=== PATIENT | female | born 2000 | race Caucasian/White ===

== ENCOUNTER → 2021-10-18 14:09 | Outpatient (BNVA) | payer MEDICAID, SELFPAY | PROVIDERS: PCP Pediatrics; Visit Provider Surgery | DX: L72.0 Epidermal cyst (principal) | CPT/HCPCS: 99202 ==

== ENCOUNTER 2022-02-09 13:37 | Outpatient (REF) | payer MEDICAID, SELFPAY ==
[2022-02-09 13:50] VITALS: BMI 35.3
[2022-02-09 13:51] VITALS: BP 133/68; PULSE 87; RESP 16; TEMP 37.2; O2SAT 98
[2022-02-09 14:20] VITALS: BP 124/86; PULSE 96; RESP 16; O2SAT 96
--- NOTE | 2022-02-09 14:34 | W.PM.OPN ---
Operative Note Operative Note Date of Service: 02/09/22 Narrative: Preoperative diagnosis: Epidermal inclusion cyst right upper lip Postoperative diagnosis: Same Procedure: Excision of epidermal inclusion cyst right upper lip Surgeon: Matt Tate MD Communication Instructor: No physician Anesthesia: Local lidocaine 2% with epinephrine Indications for procedure: 21-year-old female patient with a cystic lesion located just above the vermilion border of the upper lip right side Operative findings: 1 cm epidermal inclusion cyst upper lip right side Specimen: Epidermal inclusion cyst right upper lip Estimated blood loss: 2 mL Complications: None Procedure details: Patient was brought to the minor surgery suite and placed in a supine position in a sitting position. The site of surgery was confirmed by the patient in the right upper lip. After assuring informed consent the skin was prepped with Betadine and draped in a sterile fashion. Local anesthesia consisting of 2% lidocaine with epinephrine was then infiltrated circumferentially around the lesion. Elliptical incision oriented parallel to the vermilion border was then created with with a 15 blade. This was then carried down to the cyst wall. The cyst wall was then sharply dissected from the subcutaneous tissue and passed off the table. This was sent to pathology for further examination. Pressure was held to maintain hemostasis. Skin was then closed using a running 5 0 catgut suture. Bacitracin was then applied to the incision. The patient tolerated the procedure well. She was discharged to home in stable condition.
== END 2022-02-09 13:38 | disposition home or self-care (01) ==
LOC: HO.MS 13:37
PROVIDERS: PCP Pediatrics; Visit Provider Surgery
PROC: (CPT 11441; principal; 2022-02-09 14:20)
DX: L72.0 Epidermal cyst (principal)
CPT/HCPCS: 11441; 88304

== ENCOUNTER 2023-04-03 14:52 | Outpatient (REF) | payer MEDICAID, SELFPAY ==
[2023-04-03 18:09] LABS: Estimated Average Glucose 103 mg/dL; Hemoglobin A1c % 5.2 % (<6.0)
== END 2023-04-03 14:53 | disposition home or self-care (01) ==
LOC: HO.CHCLDS 14:52
PROVIDERS: Visit Provider Advanced Practice Midwife
DX: Z13.1 Encounter for screening for diabetes mellitus (principal)
CPT/HCPCS: 36415; 83036